=== PATIENT | female | born 1935 | race Caucasian/White ===

== ENCOUNTER → 2020-12-30 | Outpatient (CLI) | payer MEDICARE, BC ==
[2020-12-30] VITALS (9 sets, daily range): BP systolic 166–191; BP diastolic 88–101; PULSE 76–87
[~2020-12-30] MED LIST: CALCIUM 600600 M1 PO; CARDIZEM CD 30300 MG PO; CARDIZEM CD360 MG PO; FERROUS SU325 MG/TAB PO; FOLIC ACID0.4 MG PO; LIPITOR 10MG10 MG PO; LIPITOR20 MG PO; MULTIPLE VITAMI1 CAP PO; NORCO 325 MG-51 TAB PO; SYNTHROID0.075 MG/T PO; VISION FORMULA1 TAB PO; VITAMIN C500 MG PO; VITAMIN D31000 IU PO; ZESTRIL 10MG10 MG PO; ZESTRIL 20MG TA20 MG PO
--- NOTE | 2020-12-30 09:30 | NUR ---
Pt to ct per wheelchair. Pt positioned on ct table in prone position. Monitors applied and O2 on at 2l/nc.
--- NOTE | 2020-12-30 09:35 | NUR ---
Dr Becker into view images.
--- NOTE | 2020-12-30 09:50 | NUR ---
Having difficulties with ct scanner. Attempting to get to work.
--- NOTE | 2020-12-30 09:55 | NUR ---
Talked with Dr Becker due to pt being uncomfortable on CT table and due to the machine issues. Dr Becker ordered Fentanyl 50 mcg to be given to pt.
--- NOTE | 2020-12-30 10:10 | NUR ---
After reboot of ct scanner fluoro mode continues to not work. Procedure canceled at this time.
--- NOTE | 2020-12-30 10:10 | NUR ---
Pt returns with nurse to holding area. Pt up to get dressed. Int removed by Fatou RN 2x2 and doug to site. Catheter tip intact. Son to room with this nurse and explained due to CT scanner not working at this time. Procedure canceled. Food offered to pt prior to discharge. Pt states she and her son will go out to eat. Pt out to car per ambulation.
== END ==
LOC: COL.RAD 08:36
DX: R93.41 Abnormal radiologic findings on diagnostic imaging of renal pelvis, ureter, or bladder (principal)
CPT/HCPCS: J3010

== ENCOUNTER → 2021-01-14 | Outpatient (CLI) | payer MEDICARE, BC ==
[~2021-01-14] VITALS: Ht 170.2 cm; Wt 82.5 kg
[2021-01-14] VITALS (11 sets, daily range): BP systolic 108–154; BP diastolic 66–108; PULSE 57–77
--- NOTE | 2021-01-14 11:25 | NUR ---
PT WAS TAKEN TO CT AND POSITIONED ON TABLE. MONITORING EQUIPMENT PLACED
--- NOTE | 2021-01-14 11:30 | NUR ---
VERSED 1MG ADN FENTANYL 50 MCG GIVEN IV
== END ==
LOC: COL.RAD 09:17
DX: R93.41 Abnormal radiologic findings on diagnostic imaging of renal pelvis, ureter, or bladder (principal)
CPT/HCPCS: J2250; J3010